=== PATIENT | female | born 1960 | race African-American/Black ===

== ENCOUNTER 2016-07-12 05:30 | Day surgery (SDC) | payer MEDICARE, MEDICAID ==
[2016-07-10 12:09] LABS: HEMATOCRIT 38.7 % (36.0-47.0); HEMOGLOBIN 12.5 g/dL (12.0-15.5); HGB HCT DIFFERENCE -1.2; MEAN CORPUSCULAR HEMOGLOBIN 29.5 pg (27.0-33.4); MEAN CORPUSCULAR HGB CONC 32.3 g/dL (32.0-36.0); MEAN CORPUSCULAR VOLUME 92 fl (80-97); RED BLOOD COUNT 4.23 10^6/uL (3.72-5.28); RED CELL DISTRIBUTION WIDTH 12.4 % (11.5-14.0); WHITE BLOOD COUNT 7.2 10^3/uL (4.0-10.5)
[2016-07-10 12:16] LABS: APPEARANCE,URINE SLIGHTLY-CLOUDY; BILIRUBIN,URINE NEGATIVE (NEGATIVE); GLUCOSE, URINE NEGATIVE (NEGATIVE); KETONES,URINE NEGATIVE (NEGATIVE); LEUKOCYTE ESTERASE,URINE LARGE (NEGATIVE); NITRITE,URINE NEGATIVE (NEGATIVE); PROTEIN,URINE NEGATIVE (NEGATIVE); URINE SPECIFIC GRAVITY 1.008; UROBILINOGEN,URINE NEGATIVE mg/dL (<2.0)
[2016-07-10 12:49] LABS: ANION GAP 12 (5-19); BLOOD UREA NITROGEN 12 mg/dL (7-20); CALCIUM 9.9 mg/dL (8.4-10.2); CARBON DIOXIDE 28 mmol/L (22-30); CHLORIDE 101 mmol/L (98-107); CREATININE RESULT 0.68 mg/dL (0.52-1.25); GLUCOSE 87 mg/dL (75-110); POTASSIUM 3.8 mmol/L (3.6-5.0); SODIUM 141.4 mmol/L (137-145)
--- NOTE | 2016-07-10 15:47 | EKG REPORT ---
SEVERITY:- NORMAL ECG - SINUS RHYTHM : Confirmed by: Christin Duke 10-Jul-2016 15:46:19
[~2016-07-12 05:30] MED LIST: CEFAZOLIN SODIUM 1 GM in DEXTROSE 5%-WATER 50 ML IV PRN; LIDOCAINE 0.5% INJ-PF (5 MG/ML) 50 ML SDV SUBCUT PRN; RINGERS SOLUTION,LACTATED 1,000 ML IV PRN
[2016-07-12] MEDS ORDERED: MIDAZOLAM 2 MG/2 ML INJ ONE (07:09)
[2016-07-12] MEDS ORDERED: HYDROMORPHONE HCL INJ/PF 2 MG/ML AMPULE ONE (07:09)
[2016-07-12] MEDS ORDERED: MORPHINE SULFATE 10 MG/ML INJ ONE (07:10)
[2016-07-12] MEDS ORDERED: DEXMEDETOMIDINE INJ 80 MCG/20 ML VIAL IV ONE (07:10)
[2016-07-12] MEDS ORDERED: PROPOFOL INJ 200 MG/20 ML VIAL IV ONE (07:11)
[2016-07-12] MEDS ORDERED: PROMETHAZINE HCL INJ 25 MG/1 ML VIAL IV PRN ×2 (07:48)
[2016-07-12] MEDS ORDERED: FENTANYL CITRATE INJ/PF 100 MCG/2 ML AMPUL IV PRN ×3 (07:48)
[2016-07-12] MEDS ORDERED: MEPERIDINE HCL/PF INJ 25 MG/1 ML DISP.SYRIN IV PRN (07:48)
[2016-07-12] MEDS ORDERED: OXYCODONE-ACETAMINOPHEN 5-325 MG TABLET PO PRN ×2 (07:48)
[2016-07-12] MEDS ORDERED: MORPHINE SULFATE 10 MG/ML INJ IV PRN (07:48)
[2016-07-12] MEDS ORDERED: DIPHENHYDRAMINE HCL 50 MG/ML VIAL IV PRN (07:48)
[2016-07-12] MEDS: FENTANYL CITRATE INJ/PF 100 MCG/2 ML AMPUL ONE ×2 (08:50→09:05)
--- NOTE | 2016-07-12 08:58 | OPERATIVE REPORT E ---
Operative Report NAME: KENNY GRIFFIN : 1960 AGE: 55Y DATE OF SURGERY: 07/12/2016 ROOM: OR PREOPERATIVE DIAGNOSIS: CARCINOMA IN SITU OF THE CERVIX. POSTOPERATIVE DIAGNOSIS: CARCINOMA IN SITU OF THE CERVIX. OPERATION: Total vaginal hysterectomy. SURGEON: DAMION ANDERSON M.D. COMPLICATIONS: None. ANESTHESIA: General endotracheal. ESTIMATED BLOOD LOSS: Less than 100 mL. INDICATIONS FOR PROCEDURE: The patient had chronic spotty adherence with Pap protocols with abnormal Pap smear in the past. The most recent one showed a positive ECC with question of CIS of the cone. Elected to proceed with total vaginal hysterectomy. PROCEDURE: The patient was taken to the operating room and placed in the modified lithotomy position. When adequate anesthesia was ascertained, prepped and draped in the usual manner for a vaginal hysterectomy. The bladder was drained under sterile technique. EUA was performed. Surgical time-out was performed and a posterior colpotomy was performed without difficulty. The posterior cul-de-sac was entered without difficulty and weighted speculum was placed within the peritoneal cavity and posterior vagina. The cervix was generously circumscribed and the bladder was advanced sequentially throughout the case. The lower pedicles were suture ligated and free tied. The remainder up into the upper pedicles was cauterized with LigaSure device. A Cindi was placed throughout the sequence to reflect the bladder anteriorly. The uterine upper pedicles were then suture ligated and free tied. Good hemostasis was assured throughout all pedicle sites. The cervix and uterus were handed off the operative field. The ovaries were palpated to be normal. No enterocele formation was noted due to the high nature of the vagina and Veronica culdoplasty stitch was not placed. The vagina was then closed in an anterior to posterior fashion with #1 chromic catgut. Good hemostasis was assured. The vagina was then irrigated. The patient was awakened and taken to the recovery room in stable condition. DICTATING PHYSICIAN: DAMION ANDERSON M.D. [id number] PHY#: [id number] ID: [id number] JOB#: [id number] ACCT: [id number] cc:DAMION ANDERSON M.D. >
[2016-07-12] MEDS: MORPHINE SULFATE 10 MG/ML INJ ONE ×2 (09:12→09:30)
[2016-07-12] MEDS ORDERED: DIPHENHYDRAMINE HCL 50 MG/ML VIAL ONE (09:17)
[2016-07-12] MEDS ORDERED: PROMETHAZINE HCL INJ 25 MG/1 ML VIAL ONE (09:21)
[2016-07-12] MEDS ORDERED: IBUPROFEN 800 MG TABLET PO PRN (11:34)
[2016-07-12] MEDS ORDERED: MORPHINE SULFATE 10 MG/ML INJ INJ PRN ×2 (11:35)
[2016-07-12] MEDS ORDERED: MORPHINE SULFATE 10 MG/ML INJ IM PRN (11:37)
[2016-07-12] MEDS ORDERED: METHOCARBAMOL 750 MG TABLET PO PRN (12:18)
[2016-07-12] MEDS ORDERED: ROCURONIUM BROMIDE INJ 50 MG/5 ML VIAL IV ONE (12:37)
[2016-07-12] MEDS ORDERED: SUCCINYLCHOLINE CHLORIDE INJ 200 MG/10 ML VIAL ONE (12:37)
[2016-07-12] MEDS ORDERED: LIDOCAINE 2% INJ-PF (20 MG/ML) 10 ML AMPUL ONE (12:37)
[2016-07-12] MEDS ORDERED: DEXAMETHASONE SOD PHOSPHATE INJ 4 MG/1 ML VIAL ONE (12:37)
[2016-07-12] MEDS ORDERED: ONDANSETRON HCL INJ/PF 4 MG/2 ML SDV ONE (12:37)
[2016-07-12] MEDS ORDERED: KETOROLAC TROMETHAMINE 60 MG/2 ML SDV ONE (12:37)
[2016-07-12] MEDS: CEFAZOLIN SODIUM 1 GM in DEXTROSE 5%-WATER 50 ML IV SCH ×2 (14:40→21:04)
[2016-07-12] MEDS: PROMETHAZINE HCL INJ 25 MG/1 ML VIAL IM PRN (14:40)
[2016-07-12] MEDS ORDERED: LUBIPROSTONE 24 MCG CAPSULE PO SCH (18:00)
[2016-07-12] MEDS: OXYCODONE-ACETAMINOPHEN 5-325 MG TABLET PO PRN (18:04)
[2016-07-12] MEDS ORDERED: MONTELUKAST SODIUM 10 MG TABLET PO SCH (22:00)
[2016-07-13] MEDS: OXYCODONE-ACETAMINOPHEN 5-325 MG TABLET PO PRN ×2 (02:10→08:52)
[2016-07-13] MEDS: PROMETHAZINE HCL INJ 25 MG/1 ML VIAL IM PRN (02:11)
[2016-07-13 04:37] VITALS: BP 104/63
[2016-07-13 07:07] LABS: HEMATOCRIT 31.4 % (36.0-47.0); HGB HCT DIFFERENCE -0.5; MEAN CORPUSCULAR HEMOGLOBIN 29.7 pg (27.0-33.4); MEAN CORPUSCULAR HGB CONC 32.7 g/dL (32.0-36.0); MEAN CORPUSCULAR VOLUME 91 fl (80-97); RED BLOOD COUNT 3.46 10^6/uL (3.72-5.28); RED CELL DISTRIBUTION WIDTH 12.4 % (11.5-14.0); WHITE BLOOD COUNT 11.2 10^3/uL (4.0-10.5)
[2016-07-13 07:11] LABS: HEMOGLOBIN 10.3 g/dL (12.0-15.5)
--- NOTE | 2016-07-13 08:48 | DISCHARGE SUMMARY E ---
Discharge Summary NAME: KENNY GRIFFIN : 1960 AGE: 55Y ADMITTED: 07/12/2016 DISCHARGED: 07/13/2016 HISTORY: This is a 55-year-old female admitted with severe dysplasia of the cervix for a vaginal hysterectomy. The patient was same day admission, 07/12/2016, for total vaginal hysterectomy. Estimated blood loss was approximately 100 mL. Postoperatively the patient did well, voiding, ambulating, regular diet, no evidence of DVT, tolerating her pain medicine orally well. Pathology is pending at the time of dictation. PROCEDURE: Total vaginal hysterectomy. DIAGNOSIS: Severe dysplasia of the cervix. DICTATING PHYSICIAN: DAMION ANDERSON M.D. [id number] PHY#: [id number] ID: [id number] JOB#: [id number] ACCT: [id number] cc:DAMION ANDERSON M.D. > MTDD
[2016-07-13] MEDS ORDERED: HYDROCHLOROTHIAZIDE 12.5 MG CAPSULE PO SCH (10:00)
[2016-07-13] MEDS ORDERED: LOSARTAN POTASSIUM 50 MG TABLET PO SCH (10:00)
[2016-07-13] MEDS ORDERED: (PENDING PHARMACY ID) (Losartan/Hydrochlorothiazide [Hyzaar 50-12.5 Tablet] 1 EACH) PO SCH (10:00)
[2016-07-13] MEDS ORDERED: TOPIRAMATE 25 MG TABLET PO SCH (10:00)
[2016-07-13] MEDS ORDERED: LANSOPRAZOLE 15 MG TAB.RAP.DR PO SCH (10:00)
== END 2016-07-13 09:24 | disposition home or self-care (01) ==
LOC: OROUT 05:30 → EDSTATUS 07:15 → INOR 12:05 → 2N 12:05 → OROUT 07-13 09:24 → UNDODISIN 07-13 09:24
PROVIDERS: ATTEND Specialist
PROC: 0UTC7ZZ Resection of Cervix, Via Natural or Artificial Opening (ICD-10-PCS; 2016-07-12)
PROC: 0UT97ZZ Resection of Uterus, Via Natural or Artificial Opening (ICD-10-PCS; principal; 2016-07-12 07:15)
DX: D06.0 Carcinoma in situ of endocervix (principal); I10 Essential (primary) hypertension; M19.90 Unspecified osteoarthritis, unspecified site; F17.210 Nicotine dependence, cigarettes, uncomplicated; K21.9 Gastro-esophageal reflux disease without esophagitis; E78.00 Pure hypercholesterolemia, unspecified; K74.60 Unspecified cirrhosis of liver; B19.20 Unspecified viral hepatitis C without hepatic coma; G43.909 Migraine, unspecified, not intractable, without status migrainosus; Z79.899 Other long term (current) drug therapy
CPT/HCPCS: 93005; 86900; 86901; 36415 ×2; 86850; 85027 ×2; 80048; 81001; 88307 ×2; 71020; 94799; 93010; 58260; J2250; J0690; J3490 ×3; J1100; J1200; J1885; J3010; J2270; A9270 ×4; J1170; J2550 ×2; J0330; J2405; J2704; 944

== ENCOUNTER 2016-10-22 17:27 | Emergency (ER) | payer MEDICARE, MEDICAID | END 2016-10-22 18:00 | disposition left against medical advice (07) | LOC: ER 17:27 | DX: Z53.21 Procedure and treatment not carried out due to patient leaving prior to being seen by health care provider (principal) ==

== ENCOUNTER 2017-02-23 13:34 | Emergency (ER) | payer OTHER, MEDICARE, MEDICAID ==
[2017-02-23] MEDS ORDERED: ACETAMINOPHEN 325 MG TABLET PO ONE (14:05)
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
[2017-02-23 15:24] VITALS: BP 114/100
== END 2017-02-23 15:24 | disposition home or self-care (01) ==
LOC: ER 13:34
DX: S09.90XA Unspecified injury of head, initial encounter (principal); M54.2 Cervicalgia; R51 Headache; V49.50XA Passenger injured in collision with unspecified motor vehicles in traffic accident, initial encounter; E07.89 Other specified disorders of thyroid; I10 Essential (primary) hypertension; F17.200 Nicotine dependence, unspecified, uncomplicated
CPT/HCPCS: 70450; 72125; 99283

== ENCOUNTER → 2017-03-12 | Outpatient (CLI) | payer MEDICARE, MEDICAID ==
--- NOTE | 2017-03-12 12:23 | RADIOLOGY REPORT (SQ) ---
EXAM DESCRIPTION: U/S THYROID/SFT TISS HD NECK COMPLETED DATE/TIME: 03/12/2017 10:09 am REASON FOR STUDY: ABNOMAL THYROID R94.6 ABNORMAL RESULTS OF THYROID FUNCTION STUDIES COMPARISON: CT cervical spine 02/23/2017, 06/27/2007 TECHNIQUE: Dynamic and static metz-scale images acquired of the thyroid gland. Selected additional c olor/power Doppler images recorded. All images stored to PACS. LIMITATIONS: None. FINDINGS: RIGHT LOBE: Normal size, 4.5 x 1.8 x 1.7 cm in size. Homogeneous echotexture. In the rig ht posterior upper pole gland, a complex cystic and solid 1 cm lesion is present. LEFT LOBE: Normal size, 4.7 x 1.8 x 1.3 cm in size. Homogeneous echotexture. In the left lower pole gland, of peripheral rim calcified 1 cm nodule is present unchanged compared to CT dating back to 08. 6 mm colloid cyst, anterior left midpole gland. Few tiny less than 3 mm colloid cysts are prese nt. ISTHMUS: Normal size. Homogeneous echotexture. No cystic or solid masses. OTHER: No other significant finding. IMPRESSION: Multiple probably benign findings throughout the right and left lobes of the thyroid. C onsider ultrasound follow-up in 6 to 12 months. TECHNICAL DOCUMENTATION: JOB ID: [id number] [employer]- All Rights Reserved
== END ==
LOC: RAD 09:22
PROVIDERS: ATTEND Physician Assistant
DX: E04.1 Nontoxic single thyroid nodule (principal)
CPT/HCPCS: 76536

== ENCOUNTER → 2017-03-27 | Outpatient (CLI) | payer MEDICARE, MEDICAID ==
--- NOTE | 2017-03-27 19:00 | WOMENS IMAGING REPORT ---
EXAM DESCRIPTION: 3D SCREENING MAMMO BILAT COMPLETED DATE/TIME: 03/27/2017 11:10 am REASON FOR STUDY: ROUTINE SCREENING; Z12.31 Z12.31 ENCNTR SCREEN MAMMOGRAM FOR MALIGNANT NEOPLASM O F [place] COMPARISON: Multiple since 2009 TECHNIQUE: Standard craniocaudal and mediolateral oblique views of each breast recorded using digita l acquisition and breast tomosynthesis. LIMITATIONS: None. FINDINGS: RIGHT BREAST MASSES: No suspicious masses. CALCIFICATIONS: No new or suspicious calcifications. ARCHITECTURAL DISTORTION: None. DEVELOPING DENSITY: None. ASYMMETRY: None noted. OTHER: No other significant findings. LEFT BREAST MASSES: 5 cm from the nipple in the 12 to 1 o'clock position, a subcentimeter mammographic nodule is present for which cone compression views and ultrasound are recommended for followup. CALCIFICATIONS: No new or suspicious calcifications. ARCHITECTURAL DISTORTION: None. DEVELOPING DENSITY: None. ASYMMETRY: None noted. OTHER: No other significant findings. Read with the assistance of CAD. .[facility] - R2 Cenova Version 1.3 .[facility] Imaging - R2 Cenova Version 1.3 .[facility] Imaging - R2 Cenova Version 2.4 [place] [place] Cenova Version 2.4 .[facility] INCLUDES THE [facility] - R2 [employer] Version 9.2 IMPRESSION: No mammograms/tomosynthesis evidence for malignancy right breast. Subcentimeter mammographic nodule left breast upper outer quadrant for which additional cone compress ion views and ultrasound are recommended BREAST DENSITY: b. There are scattered areas of fibroglandular density. BIRAD: 0 Incomplete: Needs Additional Imaging Evaluation and/or prior Mammograms for Comparison. RECOMMENDATION: RECOMMENDED FOLLOW-UP: Additional left breast diagnostic mammograms and ultrasound The patient will be contacted for additional imaging. COMMENT: The patient has been notified of the results by letter per SA requirements. Additional no tification policies are in place for contacting patient with suspicious or incomplete findings. Quality ID #[id number]: The [employer] recommends an annual screening mammogram for women aged 40 years or over. This facility utilizes a reminder system to ensure that all patients receive reminder letters, and/or direct phone calls for appointments. This includes reminders for routine scr eening mammograms, diagnostic mammograms, or other Breast Imaging Interventions when appropriate. Th is patient will be placed in the appropriate reminder system. The [employer] (ACR) has developed recommendations for screening MRI of the breast s in certain patient populations, to be used in conjunction with mammography. Breast MRI surveillanc e may be appropriate for women with more than 20% lifetime risk of developing breast cancer as deter mined by genetic testing, significant family history of the disease, or history of mantle radiation f or Hodgkins Disease. ACR Practice Guidelines 2008. DBT Technology DBT is a type of tomographic mammography. With conventional mammography, overlapping breast tissue ma y make lesions difficult to detect, even with good compression. DBT uses an x-ray tube that rotates a round the breast, taking images at different angles. These images are then combined to create thin sl ices of the breast that the radiologist can view as a 3D reconstruction. The ReferStar unit can perform full-field digital mammograms (2D imaging); or DBT (3D imaging); or both, in a combination mode that quickly performs both the mammogram and the tomosynthesis scan while the breast is still compressed. RS 6045F: Fluoroscopic imaging is not utilized for breast tomosynthesis. TECHNICAL DOCUMENTATION: FINDING NUMBER: (1) ASSESSMENT: (1) JOB ID: [id number] [employer]- All Rights Reserved
== END ==
LOC: WI 10:38
PROVIDERS: ATTEND Physician Assistant
DX: Z12.31 Encounter for screening mammogram for malignant neoplasm of breast (principal); N63.20 Unspecified lump in the left breast, unspecified quadrant
CPT/HCPCS: 77063; G0202; 77067

== ENCOUNTER → 2017-04-12 | Outpatient (CLI) | payer MEDICARE, MEDICAID ==
--- NOTE | 2017-04-12 08:40 | WOMENS IMAGING REPORT ---
EXAM DESCRIPTION: LEFT DIAGNOSTIC MAMMO W/CAD COMPLETED DATE/TIME: 04/12/2017 8:21 am REASON FOR STUDY: LEFT BREAST DENSITY N63.0 UNSPECIFIED LUMP IN UNSPECIFIED BREAST COMPARISON: 03/27/2017 TECHNIQUE: Standard craniocaudal and mediolateral oblique images of the breast recorded with digital acquisition. An additional true lateral view of the left breast was obtained. LIMITATIONS: None. FINDINGS: BREAST: Left MASSES: The previously described subcentimeter mammographic nodule is not identified on the additiona l views obtained. CALCIFICATIONS: No new or suspicious calcifications. ARCHITECTURAL DISTORTION: None. DEVELOPING DENSITY: None. ASYMMETRY: None noted. OTHER: No other significant findings. Read with the assistance of CAD. .[facility] - R2 Cenova Version 1.3 .[facility] Imaging - R2 Cenova Version 1.3 .[facility] Imaging - R2 Cenova Version 2.4 .[facility] [place] R2 Cenova Version 2.4 .[facility] - R2 Pipe Liner Version 9.2 IMPRESSION: The previously described subcentimeter mammographic nodule is not identified on the justo tional views obtained. BREAST DENSITY: b. There are scattered areas of fibroglandular density. BIRAD: 1 Negative. RECOMMENDATION: RECOMMENDED FOLLOW UP: Recommend routine mammography SPECIFIC INTERVENTION/IMAGING/CONSULTATION RECOMMENDED:No additional intervention/ imaging/consultati on needed at this time. COMMUNICATION:The imaging findings were not discussed with the patient. Her referring provider has be en notified of the findings. COMMENT: The patient has been notified of the results by letter per SA requirements. Additional no tification policies are in place for contacting patient with suspicious or incomplete findings. Quality ID #225: The [employer] recommends an annual screening mammogram for women aged 40 years or over. This facility utilizes a reminder system to ensure that all patients receive reminder letters, and/or direct phone calls for appointments. This includes reminders for routine scr eening mammograms, diagnostic mammograms, or other Breast Imaging Interventions when appropriate. Th is patient will be placed in the appropriate reminder system. The [employer] (ACR) has developed recommendations for screening MRI of the breast s in certain patient populations, to be used in conjunction with mammography. Breast MRI surveillanc e may be appropriate for women with more than 20% lifetime risk of developing breast cancer as deter mined by genetic testing, significant family history of the disease, or history of mantle radiation f or Hodgkins Disease. ACR Practice Guidelines 2008. TECHNICAL DOCUMENTATION: FINDING NUMBER: (1) ASSESSMENT: (1) JOB ID: [id number] [employer]- All Rights Reserved
== END ==
LOC: WI 07:32
PROVIDERS: ATTEND Physician Assistant
DX: N63.20 Unspecified lump in the left breast, unspecified quadrant (principal)
CPT/HCPCS: G0206-52

== ENCOUNTER → 2017-07-20 | Outpatient (CLI) | payer MEDICARE, MEDICAID ==
--- NOTE | 2017-07-20 11:47 | RADIOLOGY REPORT (SQ) ---
EXAM DESCRIPTION: ELBOW RIGHT OVER 2 VIEWS COMPLETED DATE/TIME: 07/20/2017 10:26 am REASON FOR STUDY: R ELBOW PAIN M25.521 PAIN IN RIGHT ELBOW COMPARISON: None. NUMBER OF VIEWS: Four views. TECHNIQUE: AP, lateral, and both oblique radiographic images acquired of the right elbow. LIMITATIONS: None. FINDINGS: MINERALIZATION: Normal. BONES: No acute fracture or dislocation. No worrisome bone lesions. JOINT: No effusion. SOFT TISSUES: No soft tissue swelling. No foreign body. OTHER: No other significant finding. IMPRESSION: NEGATIVE STUDY OF THE RIGHT ELBOW. NO RADIOGRAPHIC EVIDENCE OF ACUTE INJURY. TECHNICAL DOCUMENTATION: JOB ID: [id number] [employer]- All Rights Reserved
== END ==
LOC: RAD 09:30
PROVIDERS: ATTEND Physician Assistant
DX: M25.521 Pain in right elbow (principal)

== ENCOUNTER → 2017-08-06 | Outpatient (CLI) | payer MEDICARE, MEDICAID ==
--- NOTE | 2017-08-06 15:21 | WOMENS IMAGING REPORT ---
EXAM DESCRIPTION: U/S ABDOMEN LIMITED COMPLETED DATE/TIME: 08/06/2017 9:31 am REASON FOR STUDY: CIRRHOSIS,NON-ALCOHOL;K74.69 K74.69 OTHER CIRRHOSIS OF LIVER COMPARISON: 03/22/2012 TECHNIQUE: Dynamic and static grayscale images acquired of the abdomen and recorded on PACS. Additio nal selected color Doppler and spectral images recorded. LIMITATIONS: None. FINDINGS: PANCREAS: No masses. Visualized pancreatic duct normal caliber. LIVER: 9 mm benign-appearing cyst. No masses. Echotexture normal. LIVER VASCULATURE: Normal directional flow of the main portal vein and hepatic veins. GALLBLADDER: By history patient is status post cholecystectomy. In the region of the gallbladder the re is a fluid-filled structure containing multiple stones consistent with gallbladder or cystic duct remanent. No wall thickening is seen. ULTRASOUND-DETECTED ESTEVEZ'S SIGN: Negative. INTRAHEPATIC DUCTS AND COMMON DUCT: CBD and intrahepatic ducts normal caliber. No filling defects. INFERIOR VENA CAVA: Normal flow. AORTA: No aneurysm. RIGHT KIDNEY: Normal size. Normal echogenicity. No solid or suspicious masses. No hydronephrosis. No calcifications. PERITONEAL AND RIGHT PLEURAL SPACE: No ascites or effusions. OTHER: No other significant findings. IMPRESSION: 1. Status post cholecystectomy with multiple stones seen gallbladder/cystic duct remane nt. TECHNICAL DOCUMENTATION: JOB ID: [id number] [employer]- All Rights Reserved
== END ==
LOC: WI 08:29
PROVIDERS: ATTEND Internal Medicine Gastroenterology
DX: K74.69 Other cirrhosis of liver (principal)
CPT/HCPCS: 76705

== ENCOUNTER → 2018-03-11 | Outpatient (CLI) | payer MEDICARE, MEDICAID ==
--- NOTE | 2018-03-11 09:39 | RADIOLOGY REPORT (SQ) ---
EXAM DESCRIPTION: U/S THYROID/SFT TISS HD NECK COMPLETED DATE/TIME: 03/11/2018 9:11 am REASON FOR STUDY: THYROID NODULE E04.1 NONTOXIC SINGLE THYROID NODULE COMPARISON: None. TECHNIQUE: Dynamic and static metz-scale images acquired of the thyroid gland. Selected additional c olor/power Doppler images recorded. All images stored to PACS. LIMITATIONS: None. FINDINGS: RIGHT LOBE: Normal size, 4.3 x 1.5 x 1.6 cm in size. Homogeneous echotexture. A well-cir cumscribed hypoechoic 10 x 8 x 6 mm nodule is present in the deep aspect right midpole thyroid, TIRAD S SCORE 2, unchanged from prior study 03/12/2017, benign in appearance. LEFT LOBE: Normal size, 4.6 x 1.7 x 1.3 cm in size. Homogeneous echotexture. In the left midpole gl and a 6 x 4 mm hypoechoic well-circumscribed nodule is present stable compared to prior study, TIRADS score 2, benign in appearance. A 2nd nodule is present in the left lower pole thyroid, 10 x 7 mm in size with peripheral rim calcifi cation, hypoechoic, stable compared to prior study, TIRADS score 2, benign in appearance. ISTHMUS: Normal size. Homogeneous echotexture. No cystic or solid masses. OTHER: No other significant finding. IMPRESSION: Bilateral benign-appearing thyroid nodules, unchanged from 03/12/2017 thyroid ultrasound. Follow-up thyroid ultrasound in 2 years is appropriate. TECHNICAL DOCUMENTATION: JOB ID: [id number] [employer]- All Rights Reserved Reading location - IP/workstation name: [facility]
== END ==
LOC: RAD 08:43
PROVIDERS: ATTEND Physician Assistant
DX: E04.1 Nontoxic single thyroid nodule (principal)
CPT/HCPCS: 76536

== ENCOUNTER → 2018-12-06 | Outpatient (CLI) | payer MEDICARE, MEDICAID ==
--- NOTE | 2018-12-06 10:27 | RADIOLOGY REPORT (SQ) ---
EXAM DESCRIPTION: CHEST PA/LATERAL COMPLETED DATE/TIME: 12/06/2018 8:59 am REASON FOR STUDY: COUGH COMPARISON: None. EXAM PARAMETERS: NUMBER OF VIEWS: 04/11/2016 TECHNIQUE: Digital Frontal and Lateral radiographic views of the chest acquired. RADIATION DOSE: NA LIMITATIONS: none FINDINGS: LUNGS AND PLEURA: No opacities, masses or pneumothorax. No pleural effusion. MEDIASTINUM AND HILAR STRUCTURES: No masses or contour abnormalities. HEART AND VASCULAR STRUCTURES: Heart normal size. No evidence for failure. BONES: No acute findings. HARDWARE: None in the chest. OTHER: No other significant finding. IMPRESSION: NO SIGNIFICANT RADIOGRAPHIC FINDING IN THE CHEST. TECHNICAL DOCUMENTATION: JOB ID: [id number] [employer]- All Rights Reserved Reading location - IP/workstation name: [email or web address]
== END ==
LOC: OD 08:44
PROVIDERS: ATTEND Physician Assistant
DX: R05 Cough (principal)
CPT/HCPCS: 71046

== ENCOUNTER → 2018-12-06 | Outpatient (CLI) | payer MEDICARE, MEDICAID ==
--- NOTE | 2018-12-06 10:16 | RADIOLOGY REPORT (SQ) ---
EXAM DESCRIPTION: U/S ABDOMEN LIMITED W/O DOP COMPLETED DATE/TIME: 12/06/2018 8:12 am REASON FOR STUDY: CHRONIC VIRAL HEP C (B18.2), CIRRHOSIS, NON-ALCOHOL (K74.69) B18.2 CHRONIC VIRAL HEPATITIS C K74.69 OTHER CIRRHOSIS OF LIVER COMPARISON: Abdominal ultrasound 08/06/2017 TECHNIQUE: Dynamic and static grayscale images acquired of the abdomen and recorded on PACS. Additio nal selected color Doppler and spectral images recorded. LIMITATIONS: None. FINDINGS: PANCREAS: Midline pancreas unremarkable LIVER: No masses. Echotexture normal. LIVER VASCULATURE: Normal directional flow of the main portal vein and hepatic veins. GALLBLADDER: Patient states her gallbladder was removed in October 2011. Multiple gallstones are presen t in a cystic duct remnant at the talia hepatis. No gallbladder wall thickening or pericholecystic f luid ULTRASOUND-DETECTED ESTEVEZ'S SIGN: Negative. INTRAHEPATIC DUCTS AND COMMON DUCT: CBD and intrahepatic ducts normal caliber. No filling defects. D istal most common duct not well seen due to duodenum gas INFERIOR VENA CAVA: Normal flow. AORTA: No aneurysm. RIGHT KIDNEY: Normal size. Normal echogenicity. No solid or suspicious masses. No hydronephrosis. No calcifications. PERITONEAL AND RIGHT PLEURAL SPACE: No ascites or effusions. OTHER: No other significant findings. IMPRESSION: Multiple gallstones are present in a gallbladder remnant at the talia hepatis. No gallb ladder wall thickening or pericholecystic fluid. TECHNICAL DOCUMENTATION: JOB ID: [id number] [employer]- All Rights Reserved Reading location - IP/workstation name: [email or web address]
== END ==
LOC: RAD 07:18
PROVIDERS: ATTEND Internal Medicine Gastroenterology
DX: B18.2 Chronic viral hepatitis C (principal); K74.69 Other cirrhosis of liver
CPT/HCPCS: 76705

== ENCOUNTER → 2019-12-23 | Outpatient (CLI) | payer MEDICARE, MEDICAID ==
--- NOTE | 2019-12-23 13:10 | WOMENS IMAGING REPORT ---
EXAM DESCRIPTION: 3D SCREENING MAMMO BILAT IMAGES COMPLETED DATE/TIME: 12/23/2019 9:19 am REASON FOR STUDY: Z12.31 ENCOUNTER FOR SCREENING MAMMOGRAM FOR MALIGNANT NEOPLASM OF BREAST Z12.31 ENCNTR SCREEN MAMMOGRAM FOR MALIGNANT NEOPLASM OF [place]ON COMPARISON: Multiple since 2014 EXAM PARAMETERS: Views: Standard craniocaudal and mediolateral oblique views of each breast recorded using digital acquisition and breast tomosynthesis. Read with the assistance of CAD. .[facility] - R2 [employer] Version 9.2 LIMITATIONS: None. FINDINGS: No suspicious masses, suspicious calcifications or architectural distortion. No areas of c oncern. IMPRESSION: NEGATIVE MAMMOGRAM. BIRADS 1. BREAST DENSITY: b. There are scattered areas of fibroglandular density. BIRAD: ASSESSMENT: 1 NEGATIVE RECOMMENDATION: ROUTINE SCREENING Please continue yearly bilateral screening mammography/tomosynthesis in December 2020 COMMENT: The patient has been notified of the results by letter per MQSA requirements. Additional no tification policies are in place for contacting patient with suspicious or incomplete findings. Quality ID #[id number]: The [employer] recommends an annual screening mammogram for women aged 40 years or over. This facility utilizes a reminder system to ensure that all patients receive reminder letters, and/or direct phone calls for appointments. This includes reminders for routine scr eening mammograms, diagnostic mammograms, or other Breast Imaging Interventions when appropriate. Th is patient will be placed in the appropriate reminder system. TECHNICAL DOCUMENTATION: FINDING NUMBER: (1) ASSESSMENT: (1) JOB ID: [id number] 2010 [employer]- All Rights Reserved Reading location - IP/workstation name: [email or web address]
== END ==
LOC: WI 08:50
PROVIDERS: ATTEND Physician Assistant
DX: Z12.31 Encounter for screening mammogram for malignant neoplasm of breast (principal)
CPT/HCPCS: 77063; 77067

== ENCOUNTER → 2020-01-22 | Outpatient (CLI) | payer MEDICARE, MEDICAID ==
--- NOTE | 2020-01-22 09:31 | WOMENS IMAGING REPORT ---
EXAM DESCRIPTION: U/S ABDOMEN LIMITED IMAGES COMPLETED DATE/TIME: 01/22/2020 7:29 am REASON FOR STUDY: K74.69 K74.69 OTHER CIRRHOSIS OF LIVER COMPARISON: 12/06/2018 TECHNIQUE: Dynamic and static grayscale images acquired of the abdomen and recorded on PACS. Nirmalo gabriel selected color Doppler and spectral images recorded. LIMITATIONS: None. FINDINGS: PANCREAS: Visualized portions the pancreas are normal. The tail is obscured by overlying bowel gas. LIVER: No masses. Echotexture normal. Caudate lobe is prominent. LIVER VASCULATURE: Normal directional flow of the main portal vein and hepatic veins. GALLBLADDER: Gallbladder remnant is again noted containing stones. ULTRASOUND-DETECTED ESTEVEZ'S SIGN: Negative. INTRAHEPATIC DUCTS AND COMMON DUCT: CBD and intrahepatic ducts normal caliber. No filling defects. AORTA: No aneurysm. RIGHT KIDNEY: Normal size. Normal echogenicity. No solid or suspicious masses. No hydronephrosis. No calcifications. PERITONEAL AND RIGHT PLEURAL SPACE: No ascites or effusions. OTHER: No other significant findings. IMPRESSION: Gallbladder remnant containing stones stable from prior study. No other significant fin dings. TECHNICAL DOCUMENTATION: JOB ID: [id number] 2010 [employer]- All Rights Reserved Reading location - IP/workstation name: [email or web address]
== END ==
LOC: WI 08:00
PROVIDERS: ATTEND Internal Medicine Gastroenterology
DX: K74.69 Other cirrhosis of liver (principal); K80.80 Other cholelithiasis without obstruction
CPT/HCPCS: 76705

== ENCOUNTER → 2020-05-03 | Outpatient (CLI) | payer MEDICARE, MEDICAID ==
--- NOTE | 2020-05-03 17:01 | RADIOLOGY REPORT (SQ) ---
EXAM DESCRIPTION: U/S THYROID/SFT TISS HD NECK IMAGES COMPLETED DATE/TIME: 05/03/2020 2:47 pm REASON FOR STUDY: E04.1 NONTOXIC SINGLE THYROID NODULE E04.1 NONTOXIC SINGLE THYROID NODULE COMPARISON: 03/11/2018 TECHNIQUE: Dynamic and static metz-scale images acquired of the thyroid gland. Selected additional c olor/power Doppler images recorded. All images stored to PACS. LIMITATIONS: None. FINDINGS: RIGHT LOBE: Normal size, 4.9 cm Homogeneous echotexture. There is a complex predominantl y spongiform somewhat isodense nodule in the upper pole of the right lobe measuring 11 x 5 x 7 mm. LEFT LOBE: Normal size, 4.2 cm. Homogeneous echotexture. There is cystic 7 x 6 x 4 mm area in the m id left lobe. There is a solid 9 x 8 x 8 mm nodule in the lower pole of the left lobe. ISTHMUS: Normal size, 5 mm. Homogeneous echotexture. No cystic or solid masses. OTHER: No other significant finding. IMPRESSION: 1. Spongiform somewhat isodense nodule in the upper pole the right lobe measures 11 x 5 x 7 mm. TIRADS 1. 2. Small cystic lesion in the left lobe of the gland. TIRADS 1. 3. 9 x 8 x 8 mm solid nodule in the lower pole of the left lobe is isodense.TIRADS 4. Moderately Teresa picious: FNA if greater than or equal to 1.5 cm; Follow if greater than or equal to 1 cm at 1, 2, 3, and 5 y TECHNICAL DOCUMENTATION: JOB ID: [id number] 2010 [employer]- All Rights Reserved Reading location - IP/workstation name: [email or web address]
== END ==
LOC: RAD 13:48
PROVIDERS: ATTEND Family Medicine
DX: E04.1 Nontoxic single thyroid nodule (principal)
CPT/HCPCS: 76536

== ENCOUNTER → 2020-05-12 | Outpatient (CLI) | payer MEDICARE, MEDICAID ==
[2020-05-12 12:44] LABS: FREE T3 2.83 pg/mL (2.77-5.27); FREE T4 (FREE THYROXINE) 0.81 ng/dL (0.78-2.19)
[2020-05-12 12:58] LABS: THYROID STIMULATING HORMONE 0.4 uIU/mL (0.47-4.68)
== END ==
LOC: OD 10:53
PROVIDERS: ATTEND Surgery
DX: E04.1 Nontoxic single thyroid nodule (principal)
CPT/HCPCS: 36415; 84439; 84443; 84481